=== PATIENT | female | born 1970 | race Hispanic/Latino ===

== ENCOUNTER 2019-11-11 05:47 | Emergency (ER) | payer OTHER ==
[2019-11-11 07:11] LABS: BASOPHILS % (AUTO) 0.8 % (0.0-5.0); EOSINOPHILS % (AUTO) 2.3 % (0.0-8.0); HEMATOCRIT 37.2 % (36-48); LYMPHOCYTES % (AUTO) 31.9 % (21.0-51.0); MEAN CORPUSCULAR HEMOGLOBIN 30.4 pg (27.0-33.0); MEAN CORPUSCULAR HGB CONC 34.1 g/dL (32.0-36.0); MONOCYTES % (AUTO) 10.8 % (3.0-13.0); NEUTROPHILS % (AUTO) 52.2 % (40.0-77.0); PLATELET COUNT (AUTO) 244 K/uL (130-400); RED BLOOD CELL COUNT(AUTO) 4.18 MIL/uL (4.00-5.50); RED CELL DISTRIBUTION WIDTH 13.6 % (11.0-15.5); WHITE BLOOD COUNT (AUTO) 5.1 K/uL (4.8-10.8)
[2019-11-11 07:33] LABS: ALBUMIN 3.2 g/dL (3.5-5.0); BILIRUBIN,TOTAL 0.2 mg/dL (0.2-1.0); CREATININE 0.7 mg/dL (0.5-1.5); POTASSIUM 3.7 mmol/L (3.5-5.1); TOTAL PROTEIN, SERUM 6.8 g/dL (6.0-8.3)
[2019-11-11 07:53] LABS: B-TYPE NATRIURETIC PEPTIDE < 5 pg/mL (0-100)
[2019-11-11] MEDS ORDERED: ASPIRIN 325 MG TABLET ONE (08:50)
[2019-11-11] MEDS ORDERED: SODIUM CHLORIDE 0.9% 1000ML 1,000 ML IV ONE (08:50)
[2019-11-11 08:58] LABS: RAPID GROUP A STREP NEGATIVE (NEGATIVE)
== END 2019-11-11 10:21 | disposition home or self-care (01) ==
LOC: EDH 05:47
DX: U07.1 COVID-19 (principal); R07.89 Other chest pain; Z72.0 Tobacco use; Z20.828 Contact with and (suspected) exposure to other viral communicable diseases
CPT/HCPCS: 36415; 71045; 80053; 83880; 84484; 85025; 85378; 87804 ×2; 87880; 93005; 99285; J7030; U0003

== ENCOUNTER 2020-06-28 09:01 | Emergency (ER) | payer OTHER ==
[2020-06-28] MEDS ORDERED: 0.9% NACL 500ML IV.SOLN 500 ML IV ONE (09:31)
[2020-06-28 09:38] LABS: BASOPHILS % (AUTO) 0.8 % (0.0-5.0); EOSINOPHILS % (AUTO) 1.4 % (0.0-8.0); HEMATOCRIT 41.5 % (36-48); LYMPHOCYTES % (AUTO) 45.8 % (21.0-51.0); MEAN CORPUSCULAR HEMOGLOBIN 29.4 pg (27.0-33.0); MEAN CORPUSCULAR HGB CONC 34.5 g/dL (32.0-36.0); MEAN CORPUSCULAR VOLUME 85.4 fL (79-99); MONOCYTES % (AUTO) 6.2 % (3.0-13.0); NEUTROPHILS % (AUTO) 45.6 % (40.0-77.0); PLATELET COUNT (AUTO) 306 K/uL (130-400); RED BLOOD CELL COUNT(AUTO) 4.86 MIL/uL (4.00-5.50); RED CELL DISTRIBUTION WIDTH 12.9 % (11.0-15.5); WHITE BLOOD COUNT (AUTO) 6.6 K/uL (4.8-10.8)
[2020-06-28 09:53] LABS: CREATININE 0.7 mg/dL (0.5-1.5); POTASSIUM 3.4 mmol/L (3.5-5.1)
[2020-06-28 09:57] LABS: ALBUMIN 3.9 g/dL (3.5-5.0); BILIRUBIN,TOTAL 0.6 mg/dL (0.2-1.0); MAGNESIUM 2.1 mg/dL (1.80-2.40); TOTAL PROTEIN, SERUM 8.2 g/dL (6.0-8.3)
[2020-06-28] MEDS ORDERED: KCL 20 MEQ ERTAB PO ONE (10:40)
[2020-06-28] MEDS ORDERED: HYDROXYZINE 25 MG TABLET ONE (10:40)
== END 2020-06-28 11:07 | disposition home or self-care (01) ==
LOC: EDH 09:01
DX: R07.89 Other chest pain (principal); F41.9 Anxiety disorder, unspecified; Z72.0 Tobacco use
CPT/HCPCS: 36415; 71045; 80053; 83735; 84484; 85025; 93005; 96360; 99285; J7040

== ENCOUNTER 2023-04-20 23:52 | Inpatient (IN) | payer OTHER ==
[~2023-04-20] VITALS: Ht 144.8 cm; Wt 67.9 kg
[2023-04-21] VITALS (10 sets, daily range): BP systolic 113–124; BP diastolic 71–81; PULSE 74–96; RESP 17–21; O2SAT 96–99
[2023-04-21 00:24] LABS: RAPID GROUP A STREP negative (NEGATIVE)
[2023-04-21 00:29] LABS: SARS-CoV-2, RNA, NAAT NEGATIVE SARS CoV-2 (NEGATIVE)
[2023-04-21 00:34] LABS: INFLUENZA TYPE A Negative For Type A (NEGATIVE); INFLUENZA TYPE B Negative For Type B (NEGATIVE)
[2023-04-21 00:36] LABS: CREATINE KINASE, TOTAL 63 U/L (21-232)
[2023-04-21 00:46] LABS: APPEARANCE,URINE CLEAR (CLEAR); BILIRUBIN,URINE NEGATIVE (NEGATIVE); COLOR,URINE LIGHT-YELLOW (YELLOW); GLUCOSE, URINE (UA) NEGATIVE (NEGATIVE); KETONES,URINE NEGATIVE (NEGATIVE); LEUKOCYTE ESTERASE ,URINE 25 Leu/uL (NEGATIVE); NITRATE,URINE NEGATIVE (NEGATIVE); OCCULT BLOOD,URINE NEGATIVE (NEGATIVE); PROTEIN,URINE NEGATIVE (NEGATIVE); UROBILINOGEN,URINE 0.2 mg/dL (0.2-1.0)
[2023-04-21 00:48] LABS: ADD UA MICROSCOPIC YES
[2023-04-21 00:50] LABS: MUCUS,URINE RARE LPF (None Seen); SQUAMOUS EPITHELIAL CELL,UR RARE /HPF (0-2)
[2023-04-21 00:58] LABS: AMPHET/METH SCREEN,URINE NEGATIVE (NEGATIVE); BARBITURATE SCREEN, URINE NEGATIVE (NEGATIVE); BENZODIAZEPINES SCREEN,URINE NEGATIVE (NEGATIVE); CANNABINOID SCREEN,URINE NEGATIVE (NEGATIVE); COCAINE SCREEN,URINE NEGATIVE (NEGATIVE); OPIATE SCREEN,URINE NEGATIVE (NEGATIVE); PHENCYCLIDINE SCREEN,URINE NEGATIVE (NEGATIVE)
[2023-04-21 01:20] LABS: BASOPHILS # (AUTO) 0.04 K/uL (0.00-0.20); BASOPHILS % (AUTO) 0.5 % (0.0-5.0); EOSINOPHILS # (AUTO) 0.23 K/uL (0.00-0.70); HEMATOCRIT 37.4 % (36-48); IMMATURE GRANULOCYTE ABSOLUTE 0.16 K/uL (0-1); LYMPHOCYTES # (AUTO) 2.8 K/uL (1.0-4.8); MEAN CORPUSCULAR HEMOGLOBIN 30.8 pg (27.0-33.0); MEAN CORPUSCULAR HGB CONC 33.7 g/dL (32.0-36.0); MEAN CORPUSCULAR VOLUME 91.4 fL (79-99); MONOCYTES # (AUTO) 0.8 K/uL (0.1-1.0); MONOCYTES % (AUTO) 10.1 % (3.0-13.0); NEUTROPHILS # (AUTO) 3.7 K/uL (1.8-7.7); NEUTROPHILS % (AUTO) 48.3 % (40.0-77.0); PLATELET COUNT (AUTO) 290 K/uL (130-400); RED BLOOD CELL COUNT(AUTO) 4.09 MIL/uL (4.00-5.50); RED CELL DISTRIBUTION WIDTH 13.7 % (11.0-15.5); WHITE BLOOD COUNT (AUTO) 7.7 K/uL (4.8-10.8)
[2023-04-21 01:25] LABS: CREATININE 0.8 mg/dL (0.5-1.5)
[2023-04-21] MEDS ORDERED: IOHEXOL 350 MG/ML 100ML INFUS..BTL IV ONE (01:30)
[2023-04-21 01:40] LABS: ALBUMIN 3.4 g/dL (3.5-5.0); BILIRUBIN,TOTAL 0.2 mg/dL (0.2-1.0); TOTAL PROTEIN, SERUM 7.7 g/dL (6.0-8.3)
[2023-04-21] MEDS ORDERED: IBUP-1493 PO (04:21)
[2023-04-21] MEDS: IPRATROPIUM 0.5 MG/2.5 ML INH IH SCH ×5 (07:08→23:07)
[2023-04-21] MEDS: FAMOTIDINE 20MG TAB PO SCH ×2 (08:09→20:14)
[2023-04-21] MEDS ORDERED: ACETAMINOPHEN 325 MG TAB PO PRN (12:00)
[2023-04-21] MEDS ORDERED: GUAIFENESIN-CODEINE 5 ML SYRUP PO PRN (12:00)
[2023-04-21] MEDS ORDERED: BENZONATATE 100 MG CAPSULE PO PRN (12:00)
[2023-04-21] MEDS: PREDNISONE 20 MG TABLET PO SCH (13:07)
[2023-04-21 13:20] LABS: ABG BASE EXCESS -0.3 mmol/L (-2.0-3.0); ABG HCO3 24.6 mmol/L (21.0-28.0); ABG OXYGEN SATURATION 96.3 % (95.0-99.0); ABG PCO2 41 mmHg (32-45); ABG PH 7.395 (7.35-7.450); PO2, ARTERIAL BG 84.1 mmHg (83.0-108.0); VENT MODE, BG RA (ROOM AIR)
[2023-04-22] VITALS (7 sets, daily range): BP systolic 108–118; BP diastolic 65–69; PULSE 80–98; RESP 16–20; O2SAT 98
[2023-04-22] MEDS: IPRATROPIUM 0.5 MG/2.5 ML INH IH SCH ×3 (02:25→10:57)
[2023-04-22 06:01] LABS: BASOPHILS # (AUTO) 0.02 K/uL (0.00-0.20); BASOPHILS % (AUTO) 0.2 % (0.0-5.0); EOSINOPHILS # (AUTO) 0.06 K/uL (0.00-0.70); EOSINOPHILS % (AUTO) 0.6 % (0.0-8.0); HEMATOCRIT 33.5 % (36-48); LYMPHOCYTES # (AUTO) 2.3 K/uL (1.0-4.8); LYMPHOCYTES % (AUTO) 22.3 % (21.0-51.0); MEAN CORPUSCULAR HEMOGLOBIN 30.2 pg (27.0-33.0); MEAN CORPUSCULAR HGB CONC 33.1 g/dL (32.0-36.0); MEAN CORPUSCULAR VOLUME 91.3 fL (79-99); MONOCYTES # (AUTO) 1.1 K/uL (0.1-1.0); MONOCYTES % (AUTO) 11.1 % (3.0-13.0); NEUTROPHILS # (AUTO) 6.6 K/uL (1.8-7.7); NEUTROPHILS % (AUTO) 64.8 % (40.0-77.0); PLATELET COUNT (AUTO) 259 K/uL (130-400); RED BLOOD CELL COUNT(AUTO) 3.67 MIL/uL (4.00-5.50); RED CELL DISTRIBUTION WIDTH 13.7 % (11.0-15.5); WHITE BLOOD COUNT (AUTO) 10.1 K/uL (4.8-10.8)
[2023-04-22 06:16] LABS: ALBUMIN 2.8 g/dL (3.5-5.0); BILIRUBIN,TOTAL 0.1 mg/dL (0.2-1.0); CREATININE 0.6 mg/dL (0.5-1.5); MAGNESIUM 1.9 mg/dL (1.80-2.40); TOTAL PROTEIN, SERUM 6.5 g/dL (6.0-8.3)
[2023-04-22] MEDS ORDERED: BENZ-226 PO (08:21)
[2023-04-22] MEDS ORDERED: IPRAHFA IH (08:21)
[2023-04-22] MEDS ORDERED: GUAI5SYR4 PO (08:21)
[2023-04-22] MEDS ORDERED: FAMO20TA8 PO (08:21)
[2023-04-22] MEDS ORDERED: PRED20B PO (08:21)
[2023-04-22] MEDS ORDERED: ENOXAPARIN SODIUM 40 MG/0.4 ML SYRINGE SQ SCH (09:00)
[2023-04-22] MEDS: FAMOTIDINE 20MG TAB PO SCH (09:25)
[2023-04-22] MEDS: PREDNISONE 20 MG TABLET PO SCH (09:25)
== END 2023-04-22 13:45 | disposition home or self-care (01) | DRG 192 ==
LOC: EDH 23:52 → EDHIP 23:53 → UNDOADMIN 04-21 05:52 → 3BH 04-21 10:14 → EDHIP 04-21 10:14
PROVIDERS: ADMIT Hospitalist; ATTEND Hospitalist
DX: J44.1 Chronic obstructive pulmonary disease with (acute) exacerbation (principal); Z20.822 Contact with and (suspected) exposure to COVID-19; J84.10 Pulmonary fibrosis, unspecified; E66.9 Obesity, unspecified; F17.210 Nicotine dependence, cigarettes, uncomplicated; F41.9 Anxiety disorder, unspecified; I10 Essential (primary) hypertension; Z68.32 Body mass index [BMI] 32.0-32.9, adult; Z82.49 Family history of ischemic heart disease and other diseases of the circulatory system; Z91.81 History of falling
CPT/HCPCS: 36415; 36600; 71045; 71270; 80053; 80305; 81001; 82550; 82803; 83735; 83880; 84145; 84484; 85025; 85378; 87635; 87804; 87880; 93005; 93306; 94640; 94664; C9803; G0378; J1650; Q9967

== ENCOUNTER 2024-05-18 17:39 | Emergency (ER) | payer SELFPAY ==
[~2024-05-18] VITALS: Ht 149.9 cm; Wt 61.7 kg
[~2024-05-18 17:39] MED LIST: BENZ-226 PO; FAMO20TA8 PO; IBUP-1493 PO; IPRAHFA IH; PRED20B PO
[2024-05-18 17:42] VITALS: TEMP 97.8
--- NOTE | 2024-05-18 17:54 | ERN ---
ED Note History of Present Illness Stated Complaint: SOB Chief Complaint: Shortness of Breath Time Seen by MD: 17:43 Dictation: PATIENT IS A 53-YEAR-OLD FEMALE COMING IN TODAY WITH INTERMITTENT BOUTS OF SHORTNESS A BREATH OFF AND ON FOR THE LAST THREE MONTHS. NO FEVER NO CHILLS NO NAUSEA NO VOMITING NO CHEST PAIN. SHE STATES IT SHE WAS DIAGNOSED WITH PULMONARY FIBROSIS IN MARCH OF [address] [facility] [place] AND NEVER FOLLOWED UP WITH THE DOCTOR ON THE OUTPATIENT. SHE CONTINUES TO SMOKE TOBACCO. CURRENTLY SATURATING 99% ON ROOM AIR WITH HEART RATE CONTROLLED. Allergies: Coded Allergies: No Known Drug Allergies (Unverified Allergy, Unknown, 06/28/20) Home Meds Active Scripts Ipratropium [place] (Atrovent Hfa) 17 Mcg/Actuation Hfa.aer.ad, 200 GM IH QID PRN for SHORTNESS OF BREATH/WHEEZING, #1 INHALER Prov:ISA MARSH 04/22/23 Prednisone (Deltasone/Orasone [Bulk]) 20 Mg Tab, 40 MG PO DAILY, #5 TAB 0 Refills Prov:ISA MARSH 04/22/23 Famotidine (Famotidine) 20 Mg Tablet, 20 MG PO BID, #60 TAB 0 Refills Prov:ISA MARSH 04/22/23 Benzonatate (Benzonatate) 100 Mg Capsule, 100 MG PO Q8H PRN for COUGH, #30 CAP 0 Refills Prov:ISA MARSH 04/22/23 Ibuprofen (Motrin/Advil) 800 Mg Tab, 800 MG PO TID, #30 TAB Prov:SOLO PARKER MD 04/21/23 Past Medical History Past Medical History: Ovarian Cyst Additional Past Medical Hx: PULMONARY FIBROSIS Surgical History: None PSYCH History: no pertinent psych hx Family History: HTN Social History: Negative, Lives with family History: Not Applicable RN Note Reviewed/Agreed w/PFSH: Yes Review of System Dictation CONSTITUTIONAL: NEGATIVE EXCEPT FOR HPI HEAD/FACE: NEGATIVE EXCEPT FOR HPI EENT: NEGATIVE EXCEPT FOR HPI RESPIRATORY: NEGATIVE EXCEPT FOR HPI SHORTNESS A BREATH INTERMITTENT, THREE MONTHS GASTROINTESTINAL/ABDOMINAL: NEGATIVE EXCEPT FOR HPI GENITOURINARY: NEGATIVE EXCEPT FOR HPI MUSCULOSKELETAL: NEGATIVE EXCEPT FOR HPI INTEGUMENTARY: NEGATIVE EXCEPT FOR HPI NEUROLOGICAL/PSYCH: NEGATIVE EXCEPT FOR HPI HEMATOLOGIC/LYMPHATIC: NEGATIVE EXCEPT FOR HPI ALL SYSTEMS NEGATIVE, EXCEPT NOTED ABOVE. 13 POINT REVIEW OF SYSTEMS ASSESSED AND ALL NEGATIVE EXCEPT FOR ABOVE. Initial Vital Sign VS Vital Signs Date Time Temp Pulse Resp B/P (MAP) Pulse Ox O2 Delivery O2 Flow Rate FiO2 05/18/24 17:42 97.9 94 16 152/88 99 Physical Exam Dictation VITAL SIGNS REVIEWED SATURATING 99% ON ROOM AIR GENERAL APPEARANCE: ALERT, ORIENTED X 3, NO ACUTE DISTRESS, WELL DEVELOPED, NOURISHED. HEAD AND FACE: NON-TRAUMATIC. EYES: PERRL, PINK CONJUNCTIVAS, EYELID NO TRAUMA, ANTERIOR CHAMBER WITH ARCUS SENILIS. EARS: PINNAS INTACT AND NO SIGNS OF TRAUMA OR ERYTHEMA EAR CANALS CLEAR AND NO DISCHARGE TM NO ERYTHEMA NOSE: NO DISCHARGE, NO BLEEDING. OROPHARYNX: MOUTH NORMAL, TONGUE PINK, PHARYNX CLEAR,NO ERYTHEMA, TONSILS NO EXUDATES, NO ABSCESSES NOTED, MUCOUS MEMBRANE MOIST NECK: SUPPLE, NON-TENDER, NO THYROMEGALY, NO MASSES, NO JVD, NO BRUITS BREAST:DEFERRED CHEST:NO TENDERNESS, NO CREPITUS, NO PARADOXICAL MOVEMENT, NO RETRACTIONS LUNGS:CLEAR, WELL-VENTILATED, SYMMETRIC, NO RALES, NO WHEEZING, NO RHONCHI, NO STRIDOR, GOOD BREATH SOUNDS BILATERALLY CLEAR NO TACHYPNEA NO RETRACTIONS HEART: REGULAR RATE, REGULAR RHYTHM, NO MURMUR, NO GALLOPS VASCULAR: NO PERIPHERAL EDEMA, ABDOMEN: SOFT, POSITIVE BOWEL SOUNDS, NONDISTENDED, NO GUARDING, NONTENDER, NO REBOUND, NO MASSES NO HEPATOMEGALY, NO SPLENOMEGALY, NO DIAZ'S SIGN, NO HERNIAS. RECTAL: DEFERRED GENITAL: DEFERRED NEUROLOGICAL: NORMAL SPEECH, MOTOR FUNCTION INTACT, SENSORY FUNCTION INTACT MUSCULOSKELETAL: NECK NONTENDER, FULL RANGE OF MOTION, BACK NONTENDER, FULL RANGE OF MOTION, EXTREMITIES: NONTENDER, FULL RANGE OF MOTION SKIN: COLOR PINK, DRY, NO TURGOR, NO RASH, NO LACERATIONS, NO ABRASIONS, NO CONTUSIONS. LYMPHATIC: DEFERRED Results (Laboratory/Radiology) Laboratory/Radiology Laboratory Tests Test 05/18/24 18:18 SARS-CoV-2 Antigen (Rapid) PRESUMPTIVE NEGATIVE CHEST 1VW CLINICAL HISTORY: SHORTNESS A BREATH COMPARISON: None TECHNIQUE: Single view of the chest was obtained. FINDINGS: Lungs are clear. The cardiac size and mediastinum are unremarkable. The bony structures are within normal limits. IMPRESSION: No acute cardiopulmonary process identified. Labs Reviewed?: Yes ED Course ED Course Orders Procedure Category Date Status Time Covid19 (Sars Antigen LAB 05/18/24 Complete Rapid) 17:51 Chest 1vw RAD 05/18/24 Resulted 17:51 Dexamethasone 4mg/Ml PHA 05/18/24 Complete 1ml Vial (Dexametha 18:00 Albuterol 0.083% PHA 05/18/24 Complete 2.5mg/3ml (Proventil 18:00 Current Medications Medications (Trade) Dose Ordered Sig/Reyna Route PRN Reason Start Time Stop Time Status Last Admin Dose Admin Albuterol Sulfate (Proventil 0.083% 2.5mg/3ml) 2.5 mg ONCE ONCE IH 05/18/24 18:00 05/18/24 18:01 DC 05/18/24 18:19 Dexamethasone Sodium Phosphate (dexaMETHasone 4MG/ML 1ML VIAL) 8 mg ONCE ONCE IM 05/18/24 18:00 05/18/24 18:01 DC 05/18/24 18:23 Vital Signs Date Time Temp Pulse Resp B/P (MAP) Pulse Ox O2 Delivery O2 Flow Rate FiO2 05/18/24 18:21 92 18 05/18/24 17:42 97.9 94 16 152/88 99 1925 PATIENT SATTING 99-100% ON ROOM AIR. NO ACUTE DISTRESS DISCHARGED HOME WITH DYSPNEA WE WILL BE PRESCRIBED MEDROL DOSEPAK AND ALBUTEROL TOLD TO SEE HER DOCTOR. Medical Decision Making MDM MEDICAL DISCHARGE MAKING BASED ON CHEST X-RAY AND SARS COVID SWAB. CHEST X-RAY AND COVID SWAB NEGATIVE PATIENT DISCHARGED HOME WITH ALBUTEROL AND TOLD TO FOLLOW UP WITH HER PRIMARY CARE DOCTOR DX & DISP Disposition: Discharge Departure Impression: Primary Impression: Dyspnea on exertion Condition: Stable Scripts Albuterol Sulfate (Ventolin Hfa/Proventil Hfa/Proair Hfa) 90 Mcg Puff 2 PUFF IH Q4H for WHEEZING, #1 INHALER 0 Refills Prov: KYLIE CAMACHO NP 05/18/24 Methylprednisolone (Medrol) 4 Mg Tab.ds.pk 1 TAB PO AD for 6 Days, #21 TAB 0 Refills 6 on day 1 then reduce by one tablet daily until gone Prov: KYLIE CAMACHO NP 05/18/24 Additional Instructions: FOLLOW-UP WITH PRIMARY CARE PROVIDER IN 1 TO 2 DAYS. TAKE MEDICATIONS DIRECTED HERE IN THE EMERGENCY ROOM. OKAY TO CONTINUE HOME MEDICATIONS UNLESS OTHERWISE DISCUSSED DURING YOUR VISIT IN THE EMERGENCY ROOM TODAY. RETURN TO YOUR NEAREST EMERGENCY ROOM IF SYMPTOMS WORSEN OR IF THERE IS NO IMPROVEMENT. CALL 911 IF YOU NEED IMMEDIATE ASSISTANCE. TAKE TYLENOL OR MOTRIN [id number] NEEDED AND IF NO CONTRAINDICATIONS ARE PRESENT. INCREASE ORAL HYDRATION. A WOUND CULTURE OR URINE CULTURE WAS ORDERED HERE IN THE EMERGENCY ROOM DEPARTMENT PLEASE FOLLOW-UP WITH PRIMARY CARE PROVIDER AND ADVISE THEM TO GET REPEAT PORTS FROM OUR FACILITY. IF YOU HAD ANY ESTEPHANIA WRAP/SPLINTS THAT WERE APPLIED HERE, PLEASE DO NOT REMOVE THEM UNTIL YOU SEE YOUR PRIMARY CARE OR SPECIALTY. USE INHALER EVERY4 HOURS WHILE AWAKE FOR THE NEXT TWO DAYS. TAKE MEDROL DOSEPAK DIRECTED UNTIL GONE. FOLLOW UP WITH YOUR PRIMARY CARE DOCTOR Referrals: SELF,REFERRAL (PCP) Time of Disposition: 19:26 I have reviewed the case, and I agree with, Diagnosis and Plan KYLIE CAMACHO NP May 18, 2024 17:54
--- NOTE | 2024-05-18 17:55 | NUR ---
PT JUST NOW PLACED IN MY ED BED 19
--- NOTE | 2024-05-18 18:16 | NUR ---
[employer]TER [employer]AT OPERATOR INFORMED OF PT PENDING NEB TX
[2024-05-18] MEDS: ALBUTEROL 0.083% 2.5 MG/3 ML INH IH ONE (18:19)
[2024-05-18 18:21] VITALS: PULSE 92; RESP 18
[2024-05-18] MEDS: dexaMETHasone SOD PHOSPHATE 4 MG/ML 1ML VIAL IM ONE (18:23)
--- NOTE | 2024-05-18 18:37 | HMCIMG ---
CHEST 1VW CLINICAL HISTORY: SHORTNESS A BREATH COMPARISON: None TECHNIQUE: Single view of the chest was obtained. FINDINGS: Lungs are clear. The cardiac size and mediastinum are unremarkable. The bony structures are within normal limits. IMPRESSION: No acute cardiopulmonary process identified.
--- NOTE | 2024-05-18 19:13 | NUR ---
REPORT ENDORSED TO YANCY DOBSON
[2024-05-18] MEDS ORDERED: ALBUHFA IH (19:27)
[2024-05-18] MEDS ORDERED: METH4TAB3 PO (19:27)
[2024-05-18 19:45] VITALS: BP 124/76; PULSE 96; RESP 18; O2SAT 97
== END 2024-05-18 19:48 | disposition home or self-care (01) ==
LOC: EDH 17:39
DX: R06.09 Other forms of dyspnea (principal); Z20.822 Contact with and (suspected) exposure to COVID-19; Z79.52 Long term (current) use of systemic steroids; Z79.1 Long term (current) use of non-steroidal anti-inflammatories (NSAID)
CPT/HCPCS: 99284; 71045; 87426; 96372; 94640; J1100